=== PATIENT | female | born 1960 | race Caucasian/White ===

== ENCOUNTER 2020-01-23 18:22 | Emergency (ER) | payer BC ==
[~2020-01-23] VITALS: Ht 175.3 cm; Wt 125.2 kg
--- OUTSIDE RECORDS SUMMARY | ~2020-01-23 | XMS | Encounter Summary ---
Demographics + + + | Address | [address] | | | [place] [address] | + + + | Home Phone | | + + + | Preferred Language | Unknown | + + + | Marital Status | | + + + | Jewish Affiliation | Unknown | + + + | Race | White | + + + | Ethnic Group | Not or | + + + Author + + + | Author | [facility] | | | and [place] | + + + | Organization | [facility] | | | and [...] Team Providers + +------+ + | Care Director Of Hotel Name | Role | Phone | + +------+ + | No, Physician | PCP | Unavailable | + +------+ + Reason for Visit +--------+ + | Reason | Comments | +--------+ + | Cough | RM 1 sore throat x5D | +--------+ + Encounter Details +--------+---------+ + + + | Date | Type | Department | Care Team | Description | +--------+---------+ + + + | 07/27/ | [facility] | [facility] | Derrick Valentino MD | Pharyngitis (Primary | | 2013 | Visit | CARE [address] | [address] | Dx); Cough | | | | [address] | [place] [address] | | | | | [address] | [phone] | | | | | [phone] | | | +--------+---------+ + + + Social History + + + +--------+ + [...] on file | | + + + documented as of this encounter Last Filed Vital Signs + + + [...] | | + + + + + documented in this encounter Progress Notes Derrick Valentino MD - 07/27/2013 12:23 PM PST Subjective: Patient ID: Heber Ross is a 52 y.o. female. Chief Complaint Patient presents with Cough RM 1 sore throat x5D Began with ST 5 d ago. [place] ill. Began coughing few days ago. Cough productive of small amn t phlegm. Chest does not feel congested. Sneezing some. Mouth dry. HPI Patient's medications, allergies, past medical, surgical, social and family histories were reviewed and updated as appropriate. Review of Systems Constitutional: Negative for fever and chills. Respiratory: Negative for shortness of breath. Objective: Physical Exam Constitutional: She appears well-developed and well-nourished. HENT: Right Ear: Tympanic membrane normal. Left Ear: Tympanic membrane normal. Nose: Nose normal. Mouth/Throat: Oropharynx is clear and moist. Neck: Neck supple. Pulmonary/Chest: Effort normal and breath sounds normal. Lymphadenopathy: She has no cervical adenopathy. rapid strep neg Filed Vitals: 07/27/13 1150 BP: 110/78 Pulse: 74 Temp: 36.7 C (98.1 F) TempSrc: Temporal Resp: 16 Height: 1.651 m (5' 5") Weight: 110.088 kg (242 lb 11.2 oz) SpO2: 94% Assessment: cough Plan: Tessalon perles, OTC remedies, reassurance Cynthia Stern RN - 0 07/27/2013 12:00 PM PSTConcur with student nurse intake. Cynthia Green RN documented in this enc ounter Plan of Treatment Not on filedocumented as of this encounter Procedures + +--------+ + + + | Procedure Name | Priori | Date/Time | Associated Diagnosis | Comments | | | ty | | | | + +--------+ + + + | POCT RAPID STREP A | Routin | 07/27/2013 | Pharyngitis | Results for this | | SCREEN | e | | | procedure are in the | | | | | | results section. | + +--------+ + + + documented in this encounter Results POCT Rapid Strep A Screen (07/27/2013) + + + + + + | Component | Value | Ref Range | Performed | Pathologist | | | | | At | Signature | + + + + + + | Rapid Strep | Negative | Negative | | | | A Screen | | | | | + + + + + + | Internal QC | Acceptable | | | | + + + + + + | CULTURE | | | | | | SENT TO LAB | | | | | + + + + + + + + | Specimen | + + | Respiratory sample | | (specimen) | + + documented in this encounter Visit Diagnoses + + | Diagnosis | + + | Pharyngitis - Primary Acute pharyngitis | + + | Cough | + + documented in this encounter
--- OUTSIDE RECORDS SUMMARY | ~2020-01-23 | XMS | Clinical Summary ---
Demographics + + + | Address | [address] | | | [place] [address] | + + + | Home Phone | | + + + | Preferred Language | Unknown | + + + | Marital Status | | + + + | Scientology Affiliation | Unknown | + + + | Race | White | + + + | Ethnic Group | Not or | + + + Author + + + | Author | [facility] | | | and [place] | + + + | Organization | [facility] | | | [...] Team Providers + +------+ + | Care Staff Command And Control Officer Name | Role | Phone | + [...] +--------+ +---------+------+ | HEALTH[employer] | HEALTH | [id number] | | [phone] | | PPO | [...] Person | Self | [birth year] | [address] | | Subha | al/Fam | | 1961 | [phone] | [address] [place] [address] | | | nathaniel | | | 8 (Home) | | + +--------+ +--------+ + + Advance Directives + + + + + | Type | Date Recorded | Patient | Explanation | | | | Senior Training And Development Rep | | + + + + + | Power of | | | | | Sole Scraper | | | | + + + + + | Advance | | | | | Directive | | | | + + + + +
[~2020-01-23 18:22] MED LIST: PERCOCET 7.5-31 EACH PO
[2020-01-23] MEDS ORDERED: BETAMETHASONE D15 G2 TOP (18:46)
[2020-01-23] MEDS ORDERED: CEPHALEXIN500 MG PO (18:46)
== END 2020-01-23 22:45 | disposition home or self-care (01) ==
LOC: ED 18:22
DX: L03.116 Cellulitis of left lower limb (principal); E78.00 Pure hypercholesterolemia, unspecified; Z87.891 Personal history of nicotine dependence; Z79.899 Other long term (current) drug therapy
CPT/HCPCS: 80053; 85025; 96374; 99283-25; J3370

== ENCOUNTER 2020-01-24 08:34 | Inpatient (IN) | payer BC, OTHER ==
[~2020-01-24] VITALS: Ht 175.3 cm; Wt 125.2 kg
--- OUTSIDE RECORDS SUMMARY | ~2020-01-24 | XMS | Clinical Summary ---
Demographics + + + | Address | [address] | | | [place] [address] | + + + | Home Phone | | + + + | Preferred Language | Unknown | + + + | Marital Status | | + + + | Voodoo Affiliation | Unknown | + + + | Race | White | + + + | Ethnic Group | Not or | + + + Author + + + | Author | [facility] | | | and [place] | + + + | Organization | [facility] | | | and [place] | + + + | Address | Unknown | + + + | Phone | Unavailable | + + + Support + + +---------+ + | Name | Relationship | Address | Phone | + + +---------+ + | Jose Francisco Ross | ECON | Unknown | | + + +---------+ + Care Team Providers + +------+ + | Care New Patient Escort Name | Role | Phone | + +------+ + | No, Physician | PCP | Unavailable | + +------+ + Allergies No Known Allergies Medications + + + +---------+------+------+-------+ | Medication | Sig | Dispensed | Refills | Star | End | Statu | | | | | | t | Date | s | | | | | | Date | | | + + + +---------+------+------+-------+ | benzonatate | Take 2 capsules by | 30 | 0 | 02/2 | | Activ | | (TESSALON) 100 mg | mouth 3 times daily | capsule | | 5/20 | | e | | capsule | as needed for Cough. | | | 14 | | | + + + +---------+------+------+-------+ Active Problems Not on file Social History + + + +--------+ + | Tobacco Use | Types | Packs/Day | Years | Date | | | | | Used | | + + + +--------+ + | Former Smoker | Cigarettes | | | Quit: 07/22/2010 | + + + +--------+ + + +---+---+---+ | Smokeless Tobacco: | | | | | Never Used | | | | + +---+---+---+ + + +---------+ + | Alcohol Use | Drinks/Week | oz/Week | Comments | + + +---------+ + | Not Asked | | | | + + +---------+ + + + + | Sex Assigned at | Date Recorded | | | | + + + | Not on file | | + + + Last Filed Vital Signs + + + + + | Vital Sign | Reading | Time Taken | Comments | + + + + + | Blood Pressure | 110/78 | 07/27/2013 11:50 AM | | | | | PST | | + + + + + | Pulse | 74 | 07/27/2013 11:50 AM | | | | | PST | | + + + + + | Temperature | 36.7 C (98.1 F) | 07/27/2013 11:50 AM | | | | | PST | | + + + + + | Respiratory Rate | 16 | 07/27/2013 11:50 AM | | | | | PST | | + + + + + | Oxygen Saturation | 94% | 07/27/2013 11:50 AM | | | | | PST | | + + + + + | Inhaled Oxygen | - | - | | | Concentration | | | | + + + + + | Weight | 110.1 kg (242 lb | 07/27/2013 11:50 AM | | | | 11.2 oz) | PST | | + + + + + | Height | 165.1 cm (5' 5") | 07/27/2013 11:50 AM | | | | | PST | | + + + + + | Body Mass Index | 40.39 | 07/27/2013 11:50 AM | | | | | PST | | + + + + + Plan of Treatment + + +-------+ + | Health Maintenance | Due Date | Last | Comments | | | | Done | | + + +-------+ + | Vaccine: | | | | | Dtap/Tdap/Td (1 - | 1 | | | | Tdap) | | | | + + +-------+ + | Cervical Cancer | | | | | Screening (Pap) | 2 | | | + + +-------+ + | Vaccine: Zoster (1 | | | | | of 2) | 2 | | | + + +-------+ + | Breast Cancer | | | | | Screening | 7 | | | + + +-------+ + | Vaccine: Influenza | | | | | (#1) | 0 | | | + + +-------+ + Results Not on filefrom Last 3 Months Insurance + +--------+ +--------+ +---------+------+ | Payer | Benefi | Subscriber | Effect | Phone | Address | Type | | | t Plan | ID | jones | | | | | | / | | Dates | | | | | | Group | | | | | | + +--------+ +--------+ +---------+------+ | HEALTHCOMP | HEALTH | [id number] | | [phone] | | PPO | | | COMP | | 014-Pr | 7 | | | | | FIRST | | esent | | | | | | CHOICE | | | | | | + +--------+ +--------+ +---------+------+ + +--------+ +--------+ + + | Guarantor Name | Accoun | Relation to | Date | Phone | Billing Address | | | t Type | Patient | of | | | | | | | | | | + +--------+ +--------+ + + | Heber Ross | Person | Self | [birth year] | [address] | | Subha | al/Fam | | 1961 | [phone] | [address] [place] [address] | | | nathaniel | | | 8 (Home) | | + +--------+ +--------+ + + Advance Directives + + + + + | Type | Date Recorded | Patient | Explanation | | | | Bridge Manager | | + + + + + | Power of | | | | | Electrical Test Engineer | | | | + + + + + | Advance | | | | | Directive | | | | + + + + +
--- OUTSIDE RECORDS SUMMARY | ~2020-01-24 | XMS | Encounter Summary ---
Demographics + + + | Address | [address] | | | [place] [address] | + + + | Home Phone | | + + + | Preferred Language | Unknown | + + + | Marital Status | | + + + | Gnosticist Affiliation | Unknown | + + + | Race | White | + + + | Ethnic Group | Not or | + + + Author + + + | Author | [facility] | | | and [place] | + + + | Organization | [facility] | | | and [...] Team Providers + +------+ + | Care Canine Service Teacher Name | Role | Phone | + [...] + + | 07/27/ | Office | [facility] | Derrick Valentino MD | Pharyngitis (Primary | | 2013 | Visit | CARE [address] | [address] | Dx); Cough | | | | [address] | [place] [address] | | | | | [address] | [phone] | | | | | [phone] | | | +--------+---------+ + + + [...] x5D Began with ST 5 d ago. [place] ill. Began coughing few days ago. Cough [...]
--- OUTSIDE RECORDS SUMMARY | ~2020-01-24 | XMS | Encounter Summary ---
Demographics + + + | Address | [address] | | | [place] [address] | + + + | Home Phone | | + + + | Preferred Language | Unknown | + + + | Marital Status | | + + + | Yazidi Affiliation | Unknown | + + + | Race | White | + + + | Ethnic Group | Not or | + + + Author + + + | Author | [facility] | | | and [place] | + + + | Organization | [facility] | | | [...] Team Providers + +------+ + | Care Land Mobile Radio Technician Name | Role | Phone | + [...] + + | 07/27/ | Office | [facility] | Derrick Valentino MD | Pharyngitis (Primary | | 2013 | Visit | CARE [address] | [address] | Dx); Cough | | | | [address] | [place] [address] | | | | | [address] | [phone] | | | | | [phone] | | | +--------+---------+ + + + [...] x5D Began with ST 5 d ago. [place] ill. Began coughing few days ago. Cough [...]
--- OUTSIDE RECORDS SUMMARY | ~2020-01-24 | XMS | Clinical Summary ---
Demographics + + + | Address | [address] | | | [place] [address] | + + + | Home Phone | | + + + | Preferred Language | Unknown | + + + | Marital Status | | + + + | Religion Affiliation | Unknown | + + + | Race | White | + + + | Ethnic Group | Not or | + + + Author + + + | Author | [facility] | | | and [place] | + + + | Organization | [facility] | | [...] Team Providers + +------+ + | Care Offset Assistant Press Operator Name | Role | Phone | + [...] +--------+ +---------+------+ | HEALTH[employer] | HEALTH | [id number] | | [phone] | | PPO | [...] Person | Self | [birth year] | [address] | | Subha | al/Fam | | 1961 | [phone] | [address] [place] [address] | | | nathaniel | | | 8 (Home) | | + +--------+ +--------+ + + Advance Directives + + + + + | Type | Date Recorded | Patient | Explanation | | | | Injection Mold Tooling Technician | | + + + + + | Power of | | | | | Hardwood Faller | | | | + + + + + | Advance | | | | | Directive | | | | + + + + +
[~2020-01-24 08:34] MED LIST changes: +BETAMETHASONE D15 G2 TOP; +CEPHALEXIN500 MG PO
--- OUTSIDE RECORDS SUMMARY | 2020-01-24 08:38 | XMS ---
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 [place] has no Care Guidelines for this patient. [place] VISIT COUNT (12 MO.) [address] [facility] TOTAL 2 NOTE: Visits indicate total known visits. ED/C VISIT TRACKING (12 MO.) 01/24/2020 08:34 [facility] [place] TYPE: Emergency COMPLAINT: - RECHECK LEFT LEG 01/23/2020 18:23 [facility] [place] TYPE: Emergency COMPLAINT: - LEG SWELLING INPATIENT VISIT TRACKING (12 MO.) No inpatient visits to display in this time frame [email or web address]
--- NOTE | 2020-01-24 10:15 | NUR ---
PT TO FLOOR WITH RYDER MINAYA. ABLE TO AMBULATE FROM STRETCHER TO BED ON OWN. LEG ELEVATED ON PILLOW WITH CHUCKS UNDER. VS STABLE. RA. SL. RYDER BALL BROUGHT AND STARTED IV VANCO.
--- NOTE | 2020-01-24 10:36 | NUR ---
PATIENT CHECKED IN BY LEAD TECHNICAL WRITERRYDER PATEL. PT NOW RESTING IN BED, NO DISTRESS NOTED
--- NOTE | 2020-01-24 13:40 | NUR ---
PATIENT RESTING IN BED. VITAL SIGNS AND I&O DONE. CALL LIGHT WITHIN REACH. NO OTHER NEEDS AT THIS TIME
--- NOTE | 2020-01-24 15:30 | NUR ---
spoke with Heber for CM initial eval. She states she lives at [facility] in a 2 story home, but only uses one level. She lives with her spouse Jose Francisco, and she does not use any DME. She works at [employer]. She is able to walk with mild pain and denies pain when at rest. She was seen by [facility] urgent care and failed OP treatment. She has not seen a PCP in several years and cannot remember the names of any providers she has seen. She is agreeable to see a pcp from [facility] as she was seen there pn the . Appt schedule for pt to establish care with Arin Mercado on Feb 01, at 0940 am.
--- NOTE | 2020-01-24 16:40 | NUR ---
PT AWAKE AND ALERT IN BED, ARRIVED DURING SHIFT ASSESSMENT. PRN PAIN MEDICATIONS ADMINISTERED. PT TOLERATED IV MEDICATION WELL. PT WAS REPOSITIONED TO HELP WITH DISCOMFORT. PT IN BED, CALL LIGHT WITHIN REACH, AT BEDSIDE. WILL CONTINUE TO MONITOR.
--- NOTE | 2020-01-24 17:07 | NUR ---
PT ADMITTED FROM E.D. LATE MORNING, PT HAS REQUESTED PAIN MEDICATION FOR /10 THIS AFTERNOON TORDOL GIVEN IV 30MG. PT HAS LLE ELEVATED ON TWO PILLOWS, ICE PACK PROVIDED, S/L WITH VANCOMYCIN, SHE HAS HAD EXCELLENT NUTRITIONAL INTAKE FOR MEALS, ONE PERSON TO BATHROOM, CELLULITIS OUTLINED ON ADMISSION, LINE DRAWN AT SITE FOR CALF MEASURMENT 52CM.
--- NOTE | 2020-01-24 18:35 | NUR ---
PATIENT IN BED WATCHING TV. FRESH WATER GIVEN. CALL LIGHT IN REACH. NO FURTHER NEEDS AT THIS TIME.
--- NOTE | 2020-01-24 19:15 | NUR ---
BEDSIDE REPORT RECEIVED FROM MALLORIE. pt'S LEG ELEVATED HIGHER WITH BED. NO REQUESTS AT THIS TIME. CALL LIGHT IN REACH.
--- NOTE | 2020-01-24 21:06 | NUR ---
pt AWAKE SITTING UP IN BED. ASSESSMENT COMPLETE. LEFT LEG ELEVATED, HOT TO TOUCH, REDNESS WITHIN MARGINS. 2+ PITTING EDEMA LLE. SENSATION INTACT. pt DENIES PAIN AT REST. STATES "HOT FEELING" WHEN I STAND ON IT". URINE HAT EMPTIED. ICE WATER PROVIDED. IV SL. PRN TYLENOL ADMINISTERED FOR PAIN CONTROL. CALL LIGHT IN REACH.
--- NOTE | 2020-01-24 23:25 | NUR ---
pt SLEEPING, AWAKENS TO VOICE FOR IV ANTIBIOTIC ADMINISTRATION, IV SITE FLUSHED WNL AND INFUSING ORDERED. CALL LIGHT IN REACH. pt DENIES ADDITIONAL REQUESTS.
--- NOTE | 2020-01-25 01:35 | NUR ---
CALL LIGHT ANSWERED. SBA TO RESTROOM FOR VOID AND BACK TO BED. PRN PAIN MEDICATION ADMINISTERED FOR 5/10 PAIN IN LEFT LEG "THROBBING". IV SL. ASSESSMENT COMPLETE. LEFT LEG CIRCUMFERENCE 51 CM AT THIS TIME. WARM TO TOUCH, 2+ EDEMA NOTED. CALL LIGHT AND PERSONAL SUPPLIES IN REACH.
--- NOTE | 2020-01-25 02:37 | NUR ---
CHECKED ON pt, RESTING IN BED WITH EYES CLOSED. BREATHING UNLABORED. LEFT LEG ELEVATED ON PILLOWS.
--- NOTE | 2020-01-25 06:06 | NUR ---
COMPLAINT ADJUSTER IN ROOM. VSS. COFFEE AND ICE WATER PROVIDED. LEG ELEVATED ON PILLOW. pt ORDERING BREAKFAST. CALL LIGHT IN REACH.
--- NOTE | 2020-01-25 06:45 | NUR ---
pt RESTED WELL. IV SL. LEFT LEG ELEVATED THROUGHOUT SHIFT. REDNESS WITHIN MARGINS ON LEFT LEG, 2+ EDEMA LLE. SBA/INDEPENDENT IN ROOM FOR QS VOIDS. PRN PAIN MEDICATIONS ADMINISTERED FOR PAIN CONTROL.
--- NOTE | 2020-01-25 07:50 | PATH ---
[facility] [address] [place], [place] [address] Signed ORDERING PHYSICIAN: Husam Rasmussen MD PATIENT NAME: OMI MATTHEWS GENDER: F : 1960 SPECIMEN(S): MOLECULAR PATHOLOGY RESULTS: SARS-CoV-2 Not Detected ADDITIONAL NOTES.: The Blunt Fusion SARS-CoV-2 Assay is a multiplex real-time PCR (RT-PCR) in vitro diagnostic test intended for the qualitative detection of RNA from SARS-CoV-2 from individuals who meet COVID-19 clinical and/or epidemiological criteria. In general, SARS-CoV-2 RNA can be detected during the acute phase of infection. Positive results indicate the presence of SARS-CoV-2 RNA. Clinical correlation with patient history and other diagnostic information is necessary to determine patient infection status. Positive results do not rule out bacterial infection or co-infection with other viruses. Negative results do not preclude SARS-CoV-2 infection and should not be used as the sole basis for patient management decisions. Negative results must be combined with other clinical observations, patient history, and epidemiological information. The Blunt Fusion SARS-CoV-2 Assay is not yet approved or cleared by the [place] FDA. When there are no FDA-approved or cleared tests available, and other criteria are met, FDA can make tests available under an emergency access mechanism called an Emergency Use Authorization (EUA). The EUA for this test is supported by the [place] of Health and Human Service's (HHS's) declaration that circumstances exist to justify the emergency use of in vitro diagnostics for the detection and/or diagnosis of the virus that causes COVID-19. This EUA will remain in effect for the duration of the COVID-19 declaration justifying emergency of IVDs, unless it is terminated or revoked by FDA, after which the test may no longer be used. The Blunt Fusion SARS-CoV-2 Assay is for use only under EUA in US laboratories certified under the Clinical Laboratory Improvement Amendments of 1988 (CLIA) to perform high complexity tests. [facility] is certified under CLIA to perform high complexity PATIENT NAME: OMI MATTHEWS PATHOLOGY DATE OF : 62 REPORT #: [id number] PHYSICIAN: MEREDITH PATHOLOGY PCP: NO PRIMARY CARE PHYSICIAN REPORT IS CONFIDENTIAL AND NOT TO BE RELEASED WITHOUT AUTHORIZATION [address] [address] Signed clinical laboratory testing. PERFORMING LABORATORY.: Molecular testing was performed by [facility] [address] [place] [id number] (Tube Room Cashier: Bacilio Choi D.O.; CLIA#: [id number]) Diagnostician: System Interface Pathologist Electronically Signed 01/25/2020 Copies: ~ PATIENT NAME: OMI MATTHEWS PATHOLOGY DATE OF : 62 REPORT #: [id number] PHYSICIAN: MEREDITH BESS PCP: NO PRIMARY CARE PHYSICIAN REPORT IS CONFIDENTIAL AND NOT TO BE RELEASED WITHOUT AUTHORIZATION
--- NOTE | 2020-01-25 08:07 | NUR ---
REPORT RECIEVED. PT IN BED, DENEIS PAIN AT THIS TIME. ALERT AND ORIENTED. CALL LIGHT IN REACH. DENEIS NEEDS.
--- NOTE | 2020-01-25 08:44 | NUR ---
PATIENT RESTING IN BED. WHITE BOARD UPDATED. CALL LIGHT WITHIN REACH. NO OTHER NEEDS AT THIS TIME
--- NOTE | 2020-01-25 09:30 | NUR ---
PATIENT RESTING IN BED. VITAL SIGNS AND I&O DONE. SETS UP BATHROOM FOR SHOWER. LINENS CHANGED. ICE PACKS AND WARM BLANKETS PROVIDED. CALL LIGHT WITHIN REACH. NO OTHER NEEDS AT THIS TIME
--- NOTE | 2020-01-25 10:00 | NUR ---
ASSESSMENT COMPLETED. REDNESS ON LEG DRECREASING FROM OUTLINE. BLISTERS PRESENT AND WHEEPING ON WHOLE BACK PART OF CALF. LUNGS CLEAR. PAIN 6/10 TORIDOL GIVEN. PT SHOWERED.
--- NOTE | 2020-01-25 11:00 | NUR ---
Spoke with Heber. Feels she maybe somewhat better today. Leg remains very red. Pt states she was able to shower today.
--- NOTE | 2020-01-25 11:51 | NUR ---
MED REC COMPLETE
--- NOTE | 2020-01-25 12:08 | NUR ---
PT ALERT, ORIENTED AND SITTING UP IN BED WATCHING TV. FIRST INFECTION FOR PT, SHE IS A LITTLE BEWILDERED TO HOW SHE GOT THE INFECTION. GAVE INFO, ENCOURAGEMENT. PT RECEIVED A CALL FROM HER , GAVE BLESSSING. WILL FOLLOW
--- NOTE | 2020-01-25 13:33 | NUR ---
PATIENT RESTING IN BED. VITAL SIGNS AND I&O DONE. WARM BLANKET PROVIDED. CALL LIGHT WITHIN REACH. NO OTHER NEEDS AT THIS TIME
--- NOTE | 2020-01-25 14:45 | NUR ---
ROUNDED ON PT. DENIES PAIN. WARM BLANKET PROVIDED. LLE ELEVATED. CALL LIGHT IN REACH.
--- NOTE | 2020-01-25 15:32 | NUR ---
PT RESTING IN BED EYES CLOSED, ALERT TO THIS RN IN ROOM. PT REPORTS PAIN WELL MANAGED AT THIS TIME. ASSESSMENT COMPLETE CELLULITIS OF LLE IMPROVING FROM ASSESSMENT YESTURDAY.
--- NOTE | 2020-01-25 19:00 | NUR ---
RECEIVED REPORT FROM RYDER SOFIA. pt RESTING IN BED. LEGS ELEVATED. REDNESS REMAINS WITHIN THE BORDER. WHITEBOARD UPDATED. NO REQUESTS AT THIS TIME. CALL LIGHT WITHIN REACH.
--- NOTE | 2020-01-25 22:00 | NUR ---
ASSESSMENT DONE. pt REPORTED 4/10 PAIN. PRN PAIN GIVEN (SEE MAR). LEGS ELEVATED. STARTED NEW IV AND DC'D OLD IV IT WAS PAINFUL TO pt. MEDICATIONS GIVEN (SEE MAR). VITALS AND I&O RECORDED. NO FURTHER REQUESTS AT THIS TIME. CALL LIGHT WITHIN REACH.
--- NOTE | 2020-01-25 23:51 | NUR ---
CALL LIGHT ON. VANCO INFUSION COMPLETED. SL. NO REQUESTS AT THIS TIME. CALL LIGHT WITHIN REACH.
--- NOTE | 2020-01-26 01:24 | NUR ---
ROUNDED ON pt. AWAKE "I JUST WENT TO THE BATHROOM." HAT EMPTIED. REPORTED PAIN IS "OKAY" NO REQUESTS AT THIS TIME. CALL LIGHT WITHIN REACH.
--- NOTE | 2020-01-26 03:28 | NUR ---
ROUNDED ON pt. RESTING IN BED, EYES CLOSED, RESPIRATIONS REGULAR AND UNLABORED. CALL LIGHT WITHIN REACH.
--- NOTE | 2020-01-26 06:00 | NUR ---
pt REQUESTED PRN PAIN MEDS FOR 8 PAIN. PRN MED GIVEN (SEE MAR). ASSESSMENT DONE. ICE AND ELEVATION OF LEFT LEG. VITALS AND I&O RECORDED. COFFEE PROVIDED NO FURTHER REQUESTS AT THIS TIME. CALL LIGHT WITHIN REACH.
--- NOTE | 2020-01-26 09:00 | NUR ---
PT IS ALERT, WATCHING TV, HAD A GOOD BREAKFAST, KEEPING LLE ELEVATED, REDNESS IS DECREASING, NO NEW BLISTERS, REMAINS AFEBRILE. VANC TROUGH TO BE DRAWN 11:00.
--- NOTE | 2020-01-26 10:27 | NUR ---
PATIENT AWAKE IN BED, VITALS AND I&OS CHARTED. CALL LIGHT IN REACH, NO OTHER NEEDS AT THIS TIME
--- NOTE | 2020-01-26 13:54 | NUR ---
PT. VITALS taken and charted. I&O's charted. new bed lines. Pt. got up and showered, independantly.
--- NOTE | 2020-01-26 13:57 | NUR ---
PT SITING ON SIDE OF BED, GETTING READY FOR SHOWER. PT FEELS BETTER, LLE IS IMPROVING, REDDNESS DIMINISHING. PT C/O PAIN WHEN SHE WALKS. PT REMAINING POSITIVE. GAVE BLESSING, WILL FOLLOW NEEDED
--- NOTE | 2020-01-26 14:53 | NUR ---
Spoke with Heber, she complains of a painful night. She did not take any pain meds as she thought she could make it through without. Encouraged to take meds as needed as this will assist with healing.
--- NOTE | 2020-01-26 15:03 | NUR ---
PT GIVEN TYLENOL FOR 5/10 PAIN IN LLE, KEEPING ELEVATED ON PILLOW, STATES PAIN IS MOSTLY WHEN SHE HAS TO GET UP TO BATHROOM. REMAINS AFEBRILE.
--- NOTE | 2020-01-26 17:48 | NUR ---
PT LAYING IN BED IN BED WATCHING TV WITH AT BEDSIDE. VITALS WERE TAKEN. PT IN BED, CALL LIGHT WITHIN REACH, BED IN LOWEST POSITION.
--- NOTE | 2020-01-26 18:40 | NUR ---
PT WANTED TO WALK AROUND THE UNIT. PT WAS ABLE TO WALK ON OWN WITHOUT ASSISTANCE. SHE WAS ABLE TO DO 2 LAPS BEFORE GOING BACK TO REST IN HER ROOM. PT STATED THAT THE PAIN WAS SLIGHTLY IMPROVED AFTER WALKING AROUND THE UNIT. PT IS NOW BACK IN HER ROOM, CALL LIGHT WITHIN REACH, AND HAS NO FURTHER NEEDS AT THIS MOMENT.
--- NOTE | 2020-01-26 19:00 | NUR ---
SHIFT REPORT RECEIVED FROM MILADY SOLER. PT RESTING IN BED, LEFT FOOT ELEVATED. NO NEEDS AT THIS TIME. CALL LIGHT IN REACH.
--- NOTE | 2020-01-26 20:29 | NUR ---
ASSESSMENT, VS AND I&O COMPLETED. LUNGS CLEAR IN ALL LOBES. BOWEL TONES ACTIVE, ABD SOFT, NONTENDER. CMS INTACX4 EXTREMITIES. LLE 2+ EDEMA, REDNESS, WARM. LLE ELEVATED, ICE PACK PROVITED. ICE WATER PROVIDED. A&O X4, GCS 15. IV WNL, CDI, FLUSHED WELL. PT DENIES PAIN AT THIS TIME. NO OTHER NEEDS, CALL LIGHT IN REACH.
--- NOTE | 2020-01-26 22:10 | NUR ---
PT RESTING IN BED, EYES CLOSED. RR EVEN, UNLABORED. CALL LIGHT IN REACH.
--- NOTE | 2020-01-27 00:01 | NUR ---
PT RESTING IN BED, EYES CLOSED. RR EVEN, UNLABORED. CALL LIGHT IN REACH.
--- NOTE | 2020-01-27 02:00 | NUR ---
SCHEDULED MED PROVIDED. ASSESSMENT COMPLETED. LLE 3+ EDEMA, REDNESS UNCHANGED. CMS INTACT X 4 EXTREMITIES.LUNGS CLEAR. BOWEL TONES ACTIVE, ABD SOFT, NON KNOCKOUT MAN. GCS 15, A&O X4. IV WNL. PT DENIES PAIN AT THIS TIME. NO OTHER NEEDS. CALL LIGHT IN REACH.
--- NOTE | 2020-01-27 04:02 | NUR ---
PT RESTING IN BED, EYES CLOSED. RR EVEN, UNLABORED. CALL LIGHT IN REACH.
--- NOTE | 2020-01-27 06:51 | NUR ---
VITALS AND I&OS DONE AND CHARTED. FRESH ICE WATER GIVEN. FRESH COFFEE WELL. GARBAGES EMPTIED. BEDSIDE TABLE AND CALL LIGHT IN REACH. PT NEEDS NOTHING MORE AT THIS TIME.
--- NOTE | 2020-01-27 08:45 | NUR ---
PT IS EATING BREAKFAST, IN GOOD SPIRITS, KEEPING LEG ELEVATED, C/O OF SKIN BEING TIGHT AROUND ANKLE, APPEARS TO BE RASH WITH BLISTERS THAT ARE BEGINNING TO DRY UP. TORADOL GIVEN FOR DISCOMFORT, AGREES TO WALKING AFTER BREAKFAST, REDNESS IN LEG IS IMPROVING, AFEBRILE.
--- NOTE | 2020-01-27 13:25 | NUR ---
PT ALERT, ORIENTED AND SITTING IN BED WITH TV ON. PT WELCOMED ME IN, EXPRESSED HER OPINION THAT HER LEG LOOKED BETTER. REDDNESS DIRECTOR OF SAFETY IN COLOR AND RATHER DECREASIMNG IN SIZE. PT CHEERFUL, GAVE BLESSING WILL FOLLOW NEEDED
--- NOTE | 2020-01-27 16:00 | NUR ---
PT STATES SHE HAS HAD A GOOD DAY. WATCHING TV PROGRAM, HAS WALKED IN HALLWAY, KEEPING LEG ELEVATED, CONT. SCHEDULED VANCO INFUSIONS. SLOW BUT STEADY PROGRESS. DENIES ANY NEEDS AT THIS TIME.
--- NOTE | 2020-01-27 21:30 | NUR ---
FRESH ICE WATER GIVEN. PT NEEDS NOTHING MORE AT THIS TIME. BEDSIDE TABLE AND CALL LIGHT IN REACH.
--- NOTE | 2020-01-27 22:17 | NUR ---
ASSESSMENT COMPLETED. RLE 2+ EDEMA, REDNESS, PAIN 6/10, PRN PAIN MED PROVIDED. CMS INTACT X4 EXTREMITIES. LUNGS CLEAR. BOWEL TONES ACTIVE, ABD SOFT, NONTENDER. GCS 15, A&O X4. IV WNL, CDI, FLUSHED WELL. NO OTHER NEEDS AT THIS TIME. CALL LIGHT IN REACH.
--- NOTE | 2020-01-28 00:02 | NUR ---
PT RESTING IN BED, EYES CLOSED. RR EVEN, UNLABORED. CALL LIGHT IN REACH.
--- NOTE | 2020-01-28 02:09 | NUR ---
SCHEDULED MED PROVIDED. ASSESSMENT COMPLETED. LUNGS SOUNDS CLEAR, BOWEL TONES ACTIVE. CMS INTACT X 4 EXTREMITIES. GCS 15, A&O X4. IV WNL, FLUSHED WELL. NO CHANGES TO LLE EDEMA OR REDNESS. PT DENIES PAIN AT THIS TIME. ICE WATER PROVIDED. NO OTHER NEEDS, CALL LIGHT IN REACH.
--- NOTE | 2020-01-28 04:03 | NUR ---
PT CALLS TO USE BR. IV MED FINISHED, LINE DISCONNECT. PT UP TO BR AND BACK TO BED. NO OTHER NEEDS AT THIS TIME. CALL LIGHT IN REACH.
--- NOTE | 2020-01-28 07:23 | NUR ---
pt states pain in lle is 6/10, prn pain med provided. no other needs at this time. call light in reach.
--- NOTE | 2020-01-28 07:28 | NUR ---
0712: Report received from Martha West. Pt resting in her bed and states her pain is a 6/10 and was treated for pain by Martha, see emar. Call izzy within reach.
--- NOTE | 2020-01-28 09:08 | NUR ---
PT STATES HER LEFT LOWER LEG PAIN IS NOW A 4/10 WHICH SHE STATES IS ACCEPTABLE. THE REDNESS AND SWELLING ARE WELL WITHIN THE OUTLINED EDGES AND THE PT STATES THAT HER LEG IS MUCH IMPROVED. LEGS ELEVATED AND THE PT ENCOURAGED TO CALL IF HER PAIN INCREASES. CALL NEVILLE WITHIN REACH. SEE ASSESSMENT.
--- NOTE | 2020-01-28 10:47 | NUR ---
VITALS AND I&OS CHARTED. PATIENT HAS SHOWERED THIS MORNING, LINENS CHANGED, NEW GOWN. CALL LIGHT IN REACH
--- NOTE | 2020-01-28 11:41 | NUR ---
Pt resting in her bed with her legs elevated and she denies pain at this time.
--- NOTE | 2020-01-28 12:52 | NUR ---
PT RESTING IN HER BED WITH NO COMPLAINS AT THIS TIME. LEFT LEG REMAINS ELEVATED. SEE ASSESSMETN.
--- NOTE | 2020-01-28 14:33 | NUR ---
PATIENT UP IN TO BATHROOM AND BACK TO BED. ABIEL DN I&OS CHARTED. CALL LIGHT IN REACH, NO OTHER NEEDS AT THIS TIME
--- NOTE | 2020-01-28 14:52 | NUR ---
Pt resting in her bed with her feet elevated and she denies any pain after walking with physical therapy.
--- NOTE | 2020-01-28 15:20 | NUR ---
STAFF STATE PATIENT IS STILL PLANNING TO DISCHARGE HOME, NO BARRIERS KNOWN. PATIENT IS INDEPENDENT IN ROOM.
--- NOTE | 2020-01-28 16:39 | NUR ---
Pt resting in her bed and is visiting with her spouse. She states her left leg pain is having pain rated at a 4/10 and was medicated with the ordered tylenol, see emar.
--- NOTE | 2020-01-28 17:52 | NUR ---
Pt denies any pain at this time.
--- NOTE | 2020-01-28 19:23 | NUR ---
SHIFT REPORT RECEIVED FROM ROSA SOLER. PT RESTING IN BED, DENIES PAIN. NO NEEDS AT THIS TIME. CALL LIGHT IN REACH.
--- NOTE | 2020-01-28 20:28 | NUR ---
PT ASSESSMENT, VS AND I&O COMPLETED. GCS 15, A&O X4. LUNGS CLEAR, HEART TONES REGULAR. BOWEL TONES ACTIVE, ABD SOFT, NONTENDER. IV WNL, CDI, FLUSHED WELL. CMS INTACT X4 EXTREMITIES. LLE EDEMA 2+, REDNESS NOTED, PT DENIES PAIN. ICE PACK PROVIDED, LLE ELEVATED, SCANT SEROUS DRAINAGE. RLE HAS TRACE EDEMA. ICE WATER PROVIDED. NO OTHER NEEDS AT THIS TIME. CALL LIGHT IN REACH.
--- NOTE | 2020-01-28 22:00 | NUR ---
PT RESTING IN BED, WATCHING TV. NO NEEDS AT THIS TIME. CALL LIGHT IN REACH.
--- NOTE | 2020-01-29 | NUR ---
PT RESTING IN BED, EYES CLOSED. RR EVEN, UNLABORED. CALL LIGHT IN REACH.
--- NOTE | 2020-01-29 02:24 | NUR ---
SCHEDULED MEDS PROVIDED. LLE PAIN 4/10, PRN PAIN MED PROVIDED. IV WNL, FLUSHED WELL. ASSESSMENT COMPLETED. LLE REDNESS AND EDEMA UNCHANGED AT 2+. TRACE EDEMA IN RLE. LUNGS CLEAR. BOWEL TONES ACTIVE, ABD SOFT, NONTENDER. GCS 15, A&O X4. CMS INTACT X 4 EXTREMITIES. NO OTHER NEEDS AT THIS TIME. CALL LIGHT IN REACH.
--- NOTE | 2020-01-29 04:19 | NUR ---
PT RESTING IN BED, EYES CLOSED. RR EVEN, UNLABORED. CALL LIGHT IN REACH.
--- NOTE | 2020-01-29 05:51 | NUR ---
PT SLEPT WELL THIS SHIFT. PAIN MANGED WITH PRN TYLENOL. SCANT SEROUS DRAINAGE IN LLE, 2+ EDEMA AND REDNESS UNCHANGED. PT AMBULATES WELL. VSS, UOS. IV WNL, CDI, FLUSHED WELL.
--- NOTE | 2020-01-29 06:50 | NUR ---
VS AND I&O COMPLETED. PT DENIES PAIN AT THIS TIME. NO OTHER NEEDS. CALL LIGHT IN REACH.
--- NOTE | 2020-01-29 07:20 | NUR ---
0709: Report received from Martha SOLER. Pt denies any pain or other problems at this time. Call magana within reach.
--- NOTE | 2020-01-29 08:36 | NUR ---
LEGS ELEVATED, LLE EDEMA AND REDNESS DECREASED FROM YESTERDAY. PT STATES HER PAIN IS CONTROLED AT A 1/10 AT THIS TIME. OMI DENIES ANY NEW PROBLEMS.
--- NOTE | 2020-01-29 09:08 | NUR ---
PATIENT UP TO BATHROOM AND BACK TO BED, IND. PATIENT SAID SHE DID AM CARE. SHOWER MAYBE LATER. FRESH WATER GIVEN. CALL LIGHT IN REACH. NO FURTHER NEEDS AT THIS TIME.
--- NOTE | 2020-01-29 09:22 | NUR ---
Physical therapy working with the pt at this time.
--- NOTE | 2020-01-29 09:30 | NUR ---
PT RESTING IN HER BED WITH HER LEGS ELVATED. SHE DENIES PAIN OR ANY OTHER NEW PROBLEMS.
[2020-01-29] MEDS ORDERED: DOXYCYCLINE HY100 MG PO (09:54)
== END 2020-01-29 10:35 | disposition home or self-care (01) | DRG 603 ==
LOC: ED 08:34 → MS 09:54
PROVIDERS: ADMIT Internal Medicine
DX: L03.116 Cellulitis of left lower limb (principal); Z68.41 Body mass index [BMI] 40.0-44.9, adult; Z20.828 Contact with and (suspected) exposure to other viral communicable diseases; E66.01 Morbid (severe) obesity due to excess calories; E78.00 Pure hypercholesterolemia, unspecified; Z87.891 Personal history of nicotine dependence
CPT/HCPCS: 36415; 80048; 80202; 82565; 84520; 85025; 97161; 99284; C9803; J1650; J1885; J3370; J7060

== ENCOUNTER 2023-04-29 06:11 | Day surgery (SDC) | payer BC ==
[~2023-04-29] VITALS: Ht 165.1 cm; Wt 113.4 kg
[~2023-04-29 06:11] MED LIST changes: +DOXYCYCLINE HY100 MG PO; +OZEMPIC0.25 MG/02 SUB-Q
[2023-04-29 06:35] VITALS: BP 132/57
--- NOTE | 2023-04-29 07:21 | NUR ---
DS ROUNDS. 15 MINUTES. NORMALIZED PATIENT EXPERIENCE. FACILITATED PROCESSING OF EMOTIONS. PROVIDED PRAYER. PT EXPRESSED APPRECIATION.
[2023-04-29 08:48] VITALS: BP 126/74
--- NOTE | 2023-04-29 08:53 | NUR ---
04/29/23 0853 Miranda Sage 0758 PT TO PACU FROM OR PER STRETCHER. PT AWAKE AND RESPIRATIONS EVEN AND UNLABORED. 0810 PT DROWSY, AWAKE ON AND OFF. 0832 O2 DC'D. O2 SATS IN UPPER 90S 0840 PT AWAKE, SITTING UP AND DRINKING JUICE. TOLERATING WELL. NO COMOPLAINTS. 0852 PT GETTING DRESSED, DENIES DIZZINESS OR LIGHTHEADEDNESS.
--- NOTE | 2023-04-30 06:07 | OR ---
[facility] [address] [place], [place] [address] Signed DATE OF OPERATION: 04/29/2023 SURGEON: Sudha Garcia MD PROCEDURE: Colonoscopy. PREOPERATIVE DIAGNOSES: 1. Positive Cologuard test. 2. Brother with stage IV colon cancer, age 57. 3. Mother with possible colonic polyps. POSTOPERATIVE DIAGNOSES: 1. A 6 mm pedunculated polyp at 15 cm in the rectum (snare). 2. A 3 mm polyp at hepatic flexure. 3. A 6 mm pedunculated polyp at 20 cm in sigmoid colon (snare). 4. Minimal internal hemorrhoids. 5. [id number]-klcxyftn sigmoid diverticulosis. PROCEDURE: Colonoscopy with hot biopsy and snare polypectomy. ESTIMATED BLOOD LOSS: None. INDICATIONS: Omi is a 62-year-old obese female, asked to see me for initial colonoscopy. She had a positive Cologuard test in September 2022. She said her brother was just diagnosed with stage IV colon cancer at age 57 at [facility] in [place], [place]. She told me he now has a colostomy bag. She thinks he may have had colonic polyps. She said her other brothers and sisters have all been negative. She has no lower GI complaints. In the office, I gave her a pamphlet on colonoscopy. We had reviewed that together. There is risk including, but not limited to gas bloating, crampy abdominal pain, bleeding, perforation requiring surgery, and missed diagnosis. We also reviewed the written instructions for the bowel prep line by line. She also understands the need for IV conscious sedation. She said her will come by later to pick her up. She had expressed understanding and wished to proceed. DESCRIPTION OF PROCEDURE: Omi was taken into the endoscopy suite and placed in the left lateral decubitus Electronically Signed By: SUDHA GARCIA MD 04/30/23 0607 PATIENT NAME: OMI MATTHEWS OPERATIVE REPORT DATE OF : 62 REPORT #: [id number] PHYSICIAN: SUDHA GARCIA MD PCP: AARTI COCHRAN PA-C REPORT IS CONFIDENTIAL AND NOT TO BE RELEASED WITHOUT AUTHORIZATION [facility] [address] [place], [place] [address] Signed position. She was given IV sedation with 6 mg of Versed and 125 mcg of fentanyl. A digital rectal exam was performed and this was unremarkable. She had good sphincter tone. No external hemorrhoids. No masses. The adult colonoscope was introduced and advanced all the way around into the cecum under direct visualization of camera without difficulty. Overall, her prep was good. She had several areas of liquid stool that were easily suctioned out. We could easily see the cecum and the ileocecal valve. The scope was then slowly withdrawn. We took several pictures throughout for photodocumentation. We used a hot biopsy forceps on the small polyp at the hepatic flexure. We used the snare at 20 cm and then the hot biopsy forceps to catch the base of that polyp. We then used the snare back at 15 cm. We could also see that she does have diverticula in the left and sigmoid colon. They were moderate in size, few in number, and scattered about. Upon retroflexion of scope, she does have minimal internal hemorrhoid columns. After this, the gas was suctioned out and the colonoscope removed. Omi tolerated the procedure quite well. RECOMMENDATIONS: I will see Omi back in my office in 7 to 14 days to review her results. Sudha Garcia MD ALB/MODL /[id number] cc: MD Aarti Rios, Physician [employer] Worker Copies: SUDHA GARCIA MD ~ Electronically Signed By: SUDHA GARCIA MD 04/30/23 0607 PATIENT NAME: OMI MATTHEWS OPERATIVE REPORT DATE OF : 62 REPORT #: [id number] PHYSICIAN: SUDHA GARCIA MD PCP: AARTI COCHRAN PA-C REPORT IS CONFIDENTIAL AND NOT TO BE RELEASED WITHOUT AUTHORIZATION
--- NOTE | 2023-05-02 15:52 | PATH ---
[facility] [address] [place], [place] [address] Signed SPECIMEN(S): A COLON POLYP AT 15 CM SPECIMEN(S): B HEPATIC FLEXURE COLON POLYP SPECIMEN(S): C DISTAL SIGMOID POLYP AT 20 CM SPECIMEN SOURCE: A. COLON POLYP AT 15 CM B. HEPATIC FLEXURE COLON POLYP C. DISTAL SIGMOID POLYP AT 20 CM CLINICAL HISTORY: + Cologuard, family history of colon CA. Post: Polyps, diverticulosis, hemorrhoids FINAL PATHOLOGIC DIAGNOSIS: A. Colon polyp at 15 cm: - Hyperplastic polyp (one fragment). B. Hepatic flexure colon polyp: - Tubular adenoma (one fragment). C. Distal sigmoid polyp at 20 cm: - Hyperplastic polyp (two fragments). JVR:smn MICROSCOPIC EXAMINATION: Histologic sections of all submitted blocks are examined by light microscopy. These findings, together with the gross examination, support the pathologic diagnosis. GROSS DESCRIPTION: A. The specimen, labeled and designated "Jennifer Ross," and designated on the requisition "colon (NOS) polypectomy at 15 cm," is received in formalin and consists of one matta soft tissue fragment measuring 0.3 x 0.2 x 0.2 cm, the specimen is submitted entirely in (A1). B. The specimen, labeled and designated "Jennifer Ross," and designated on the requisition "colon, hepatic flexure polypectomy," is received in formalin and consists of one matta soft tissue fragment measuring 0.3 x 0.2 x 0.2 cm, the specimen is submitted entirely in (B1). C. The specimen, labeled and designated "Jennifer Ross," and designated on the requisition "colon, distal sigmoid polypectomy at 20 cm," is received in formalin and consists of multiple fragments of matta soft polypoid tissue and yellow-brown fragments of fecal debris measuring 2.0 x 0.9 x 0.3 cm in aggregate, all specimens are submitted entirely in (C1). PATIENT NAME: OMI ROSS PATHOLOGY DATE OF : 62 REPORT #: [id number] PHYSICIAN: MEREDITH BESS PCP: AARTI COCHRAN PA-C REPORT IS CONFIDENTIAL AND NOT TO BE RELEASED WITHOUT AUTHORIZATION [facility] [address] [place] [id number] Signed MMA (under the direct supervision of a pathologist) The Gross Description was prepared using a voice recognition system. The report was reviewed for accuracy; however, sound-alike word errors, addition and/or deletions may occur. If there is any question about this report, please contact Client Services. PERFORMING LABORATORY: Technical component was performed by [facility], [address] [place] [id number] (CLIA# [id number]). Professional interpretation was performed by [facility], [address] [place] [id number] (CLIA#: [id number]). Diagnostician: Baldo Quevedo MD Pathologist Electronically Signed 05/02/2023 Copies: ~ PATIENT NAME: OMI ROSS PATHOLOGY DATE OF : 62 REPORT #: [id number] PHYSICIAN: MEREDITH PATHOLOGY PCP: AARTI COCHRAN PA-C REPORT IS CONFIDENTIAL AND NOT TO BE RELEASED WITHOUT AUTHORIZATION
== END 2023-04-29 09:05 | disposition home or self-care (01) ==
LOC: DS 06:11 → OPS 06:11 → DS 07:30 → OPS 07:30
PROVIDERS: ATTEND Colon & Rectal Surgery
PROC: 0DBL8ZZ Excision of Transverse Colon, Via Natural or Artificial Opening Endoscopic (ICD-10-PCS; principal; 2023-04-29 07:30)
DX: Z12.11 Encounter for screening for malignant neoplasm of colon (principal); D12.3 Benign neoplasm of transverse colon; K63.5 Polyp of colon; K62.1 Rectal polyp; K64.8 Other hemorrhoids; K57.30 Diverticulosis of large intestine without perforation or abscess without bleeding; E66.9 Obesity, unspecified; E78.00 Pure hypercholesterolemia, unspecified; Z68.41 Body mass index [BMI] 40.0-44.9, adult; Z80.0 Family history of malignant neoplasm of digestive organs; Z83.719 Family history of colon polyps, unspecified
CPT/HCPCS: 99153; G0500; J2250; J3010; J7121